=== PATIENT | female | born 1965 | race Caucasian/White ===

== ENCOUNTER 2018-04-29 06:32 | Emergency (ER) | payer OTHER ==
[2018-04-29] MEDS ORDERED: Ketorolac 30 MG/ML SDV IVPUSH ONE (06:45)
[2018-04-29] MEDS ORDERED: Metoclopramide 10 MG/2 ML SDV IVPUSH ONE (06:45)
[2018-04-29] MEDS ORDERED: Sodium Chloride 0.9% 1,000 ML IV ONE (06:45)
[2018-04-29] MEDS ORDERED: diphenhydrAMINE 50 MG/ML SDV IVPUSH ONE (06:45)
--- NOTE | 2018-04-29 07:31 | EDM.PDOC ---
ED HPI GENERAL MEDICAL PROBLEM - General Chief Complaint: Headache Stated Complaint: MIGRAINE Time Seen by Provider: 04/29/18 07:00 Source of Information: Reports: Patient, Family History Limitations: Reports: No Limitations - History of Present Illness INITIAL COMMENTS - FREE TEXT/NARRATIVE: Stephanie [facility] with a generalized headache over the past 4 days. Sxs were initially frontal and occipital in location, sharp, and associated with some nausea, tension, and malaise. She tried Imitrex tab po and NSAIDs with limited benefit. Sxs seemed to improve yesterday, but relapsed overnight, associated with photophobia, nausea and vomiting. She was administered Toradol, Benedryl, and Reglan shortly after admission to the ED by off-going provider and is resting more comfortably. Headache Pain Score (Numeric/FACES): 8 - Related Data Allergies Allergy/AdvReac Type Severity Reaction Status Date / Time egg Allergy Intermediate Nausea Verified 04/29/18 07:18 Home Meds: Home Meds Metaxalone [Skelaxin] 800 mg PO TID PRN 10/14/15 [History] Oxybutynin Chloride 5 mg PO BID 10/14/15 [History] SUMAtriptan succinate [Sumatriptan Succinate] 100 mg PO ASDIRECTED PRN 10/14/15 [History] Calcium Carbonate/Vitamin D3 [Calcium 500-Vit D3 200 Caplet] 1 tab PO DAILY [History] Multivitamin [Multivitamins] 1 cap PO DAILY 10/15/15 [History] Past Medical History Other [employer]OLING [employer] History: HYSTERECTOMY, TUBAL Neurological History: Reports: Migraines - Infectious Disease History Infectious Disease History: Reports: Chicken Pox - Past Surgical History GI Surgical History: Reports: Appendectomy, Hernia Repair/Other Musculoskeletal Surgical History: Reports: Shoulder Surgery ED ROS GENERAL - Review of Systems Review Of Systems: See Below Constitutional: Reports: Malaise, Decreased Appetite HEENT: Reports: Other (photophobia) Respiratory: Reports: No Symptoms Cardiovascular: Reports: No Symptoms Endocrine: Reports: No Symptoms GI/Abdominal: Reports: Nausea, Vomiting : Reports: No Symptoms Musculoskeletal: Reports: No Symptoms Skin: Reports: No Symptoms Neurological: Reports: Headache Psychiatric: Reports: No Symptoms Hematologic/Lymphatic: Reports: No Symptoms Immunologic: Reports: No Symptoms - Physical Exam Exam: See Below Exam Limited By: No Limitations General Appearance: Alert, WD/WN, Mild Distress Eye Exam: Bilateral Eye: EOMI, Normal Inspection, PERRL Ears: Normal External Exam Nose: Normal Inspection Throat/Mouth: Normal Inspection, Normal Lips, Normal Oropharynx, Normal Voice, No Airway Compromise Head Exam: Atraumatic, Scalp Tenderness Neck: Normal Inspection, Supple, Non-Tender, Full Range of Motion Respiratory/Chest: No Respiratory Distress, Lungs Clear, Normal Breath Sounds, No Accessory Muscle Use Cardiovascular: Normal Peripheral Pulses, Regular Rate, Rhythm, No Edema, No Murmur GI/Abdominal: Soft, Non-Tender, No Organomegaly, No Distention, No Mass (Female) Exam: Deferred Rectal (Female) Exam: Deferred Neuro Exam (Abbreviated): Alert, Oriented, CN II-XII Intact, Normal Cognition, No Motor/Sensory Deficits Back Exam: Normal Inspection Extremities: Normal Inspection Psychiatric: Normal Affect, Normal Mood Skin Exam: Warm, Dry, Intact, Normal Color Course - Vital Signs Text/Narrative:: Following assessment and initial meds, patients headache improved from a 10/10 to an 8/10 over the next hour. IV fluids included 1L NS. An additional dose of Toradol 30 mg IV was administered, improving headache to 5/10 over the next hour. I elected to administer Dilaudid 2 mg IV for remission of headache sxs. Following a period of observation, she was discharged clinically improved home and will rest. Last Recorded V/S: Last Vital Signs Temp 36.4 C 04/29/18 06:35 Pulse 48 L 04/29/18 09:50 Resp 16 04/29/18 09:50 BP 141/86 H 04/29/18 09:50 Pulse Ox 96 04/29/18 09:50 - Orders/Labs/Meds Meds: Medications Discontinued Medications Generic Name Dose Route Start Last Admin Trade Name Julioq PRN Reason Stop Dose Admin Diphenhydramine HCl 50 mg 04/29/18 06:45 04/29/18 06:56 Benadryl IVPUSH 04/29/18 06:46 50 mg ONETIME ONE Administration Hydromorphone HCl 2 mg 04/29/18 09:18 04/29/18 09:25 Dilaudid IVPUSH 04/29/18 09:19 2 mg ONETIME ONE Administration Sodium Chloride 1,000 mls @ 999 mls/hr 04/29/18 06:45 04/29/18 06:45 Normal Saline IV 04/29/18 07:45 999 mls/hr .BOLUS ONE Administration Ketorolac Tromethamine 30 mg 04/29/18 06:45 04/29/18 06:53 Toradol IVPUSH 04/29/18 06:46 30 mg ONETIME ONE Administration Ketorolac Tromethamine 30 mg 04/29/18 07:56 04/29/18 08:09 Toradol IM 04/29/18 07:57 30 mg ONETIME ONE Administration Metoclopramide HCl 10 mg 04/29/18 06:45 04/29/18 06:59 Reglan IVPUSH 04/29/18 06:46 10 mg ONETIME ONE Administration Departure - Departure Time of Disposition: 10:10 Disposition: Home, Self-Care 01 Condition: Fair Clinical Impression: Migraine - Discharge Information *PRESCRIPTION DRUG MONITORING PROGRAM REVIEWED*: Not Applicable *COPY OF PRESCRIPTION DRUG MONITORING REPORT IN PATIENT LORIE: Not Applicable Instructions: Migraine Headache, [id number] Referrals: Michael Lawson MD [Primary Care Provider] - Forms: ED Department Discharge Care Plan Goals: Follow up as needed No driving today - Problem List & Annotations (1) Migraine SNOMED Code(s): 66658907 Code(s): G43.909 - MIGRAINE, UNSP, NOT INTRACTABLE, WITHOUT STATUS MIGRAINOSUS Status: Acute Annotation/Comment:: Home, rest, and continue NSAIDs if needed. - Problem List Review Problem List Initiated/Reviewed/Updated: Yes - Assessment/Plan Plan: Follow up with PCP if needed.
[2018-04-29] MEDS ORDERED: Ketorolac 30 MG/ML SDV IM ONE (07:56)
[2018-04-29] MEDS ORDERED: HYDROmorphone 2 MG/ML SDV IVPUSH ONE (09:18)
[2018-04-29 10:15] VITALS: BP 141/86
== END 2018-04-29 09:55 | disposition home or self-care (01) ==
LOC: FB.ED 06:32
DX: G43.909 Migraine, unspecified, not intractable, without status migrainosus (principal); Z91.012 Allergy to eggs
CPT/HCPCS: 96361; 96372; 96374; 96375; 99283; J1170; J1200; J1885; J2765; J7030

== ENCOUNTER 2023-09-07 07:41 | Day surgery (SDC) | payer BC, OTHER ==
[2023-09-07] MEDS ORDERED: Propofol 200 MG/20 ML SDV IV ONE (07:42)
[2023-09-07] MEDS ORDERED: Midazolam 1 MG/ML 2 ML SDV IV ONE (07:42)
[2023-09-07] MEDS ORDERED: Lidocaine 2% 100 MG/5 ML Syringe IVPUSH ONE (07:42)
[2023-09-07] MEDS ORDERED: Glycopyrrolate 0.2 MG/ML 5 ML MDV IV ONE (07:42)
[2023-09-07] MEDS ORDERED: Sodium Chloride 0.9% 10 ML Syringe FLUSH PRN (07:45)
[2023-09-07] MEDS: Lactated Ringers 1,000 ML IV SCH (08:25)
[2023-09-07] MEDS: Simethicone Drops 40 MG/0.6 ML 30 ML Bottle ONE (09:22)
[2023-09-07 11:22] VITALS: BP 145/88; PULSE 83
== END 2023-09-07 10:50 | disposition home or self-care (01) ==
LOC: FB.SDS 07:41
PROVIDERS: ATTEND Surgery
DX: Z12.11 Encounter for screening for malignant neoplasm of colon (principal); D12.6 Benign neoplasm of colon, unspecified; F41.9 Anxiety disorder, unspecified; F32.A Depression, unspecified; F17.210 Nicotine dependence, cigarettes, uncomplicated; Z90.710 Acquired absence of both cervix and uterus; Z98.51 Tubal ligation status; Z91.012 Allergy to eggs
CPT/HCPCS: 00811; 88305; A9270-GY; J2250; J2704; J3490; J7120